=== PATIENT | female | born 1985 | race Caucasian/White ===

== ENCOUNTER 2017-09-08 16:10 | Emergency (ER) | END 2017-09-08 18:07 | disposition home or self-care (01) ==

== ENCOUNTER 2018-01-04 12:34 | Outpatient (CLI) | END 2018-01-04 17:20 | disposition home or self-care (01) ==

== ENCOUNTER 2018-03-21 05:30 | Inpatient (IN) | payer MEDICAID ==
[~2018-03-21] VITALS: Ht 162.6 cm; Wt 75.2 kg
[~2018-03-21 05:30] MED LIST: PREN-93 PO
[2018-03-21 05:49] VITALS: Ht 162.6 cm; Wt 75.2 kg
[2018-03-21] MEDS ORDERED: CARBOPROST 250 MCG INJ IM PRN ×2 (06:00→09:30)
[2018-03-21] MEDS ORDERED: OXYTOCIN 30 UNITS/LR 500 ML IV PRN ×2 (06:00→09:30)
[2018-03-21] MEDS ORDERED: OXYTOCIN 30 UNITS/LR 500 ML IV SCH ×2 (06:00→09:03)
[2018-03-21] MEDS ORDERED: METHYLERGONOVINE 0.2 MG INJ IM PRN ×2 (06:00→09:30)
[2018-03-21] MEDS ORDERED: MISOPROSTOL 200 MCG TAB PR PRN ×2 (06:00→09:30)
[2018-03-21] MEDS ORDERED: CEFAZOLIN 2 GM/50 ML (PMX) 50 ML IVPB SCH (06:00)
[2018-03-21 06:29] VITALS: BP 109/63; PULSE 75; RESP 16
[2018-03-21] MEDS: LACTATED RINGER'S 1,000 ML IV SCH ×3 (06:29→22:14)
[2018-03-21] MEDS ORDERED: OXYTOCIN 30 UNITS/LR 500 ML BAG IV ONE (07:00)
[2018-03-21] MEDS ORDERED: EPHEDrine SULFATE 50 MG/5 ML SYG ONE (07:00)
--- NOTE | 2018-03-21 08:13 | PREAC ---
Date/Time of Note Date/Time of Note DATE: 03/21/18 TIME: 08:12 Anesthesia Eval and Record Evaluation Time Pre-Procedure Interview DATE: 03/21/18 TIME: 08:12 Age 33 Sex female NPO: 8 hrs Preoperative diagnosis Planned procedure repeat c/s with BTL Past Medical History Past Medical History: None Surgery & Anesthesia Issues No known issue Meds Anticoagulation: No Beta Ceferino within 24 hr: No Reason Beta Ceferino not given: Pt. not on B-Ceferino Reported Medications Vit No.124/Iron/FA ( Vitamin Tablet) 1 Each Tablet, 1 EACH PO DAILY, TAB 01/04/18 Current Medications Lactated Ringer's 1,000 ml @ 125 mls/hr Q8H IV Last administered on 03/21/18at 06:29; Admin Dose 125 MLS/HR; Start 03/21/18 at 05:50 Cefazolin Sodium/ Dextrose 50 ml @ 100 mls/hr ONCE IVPB ; Start 03/21/18 at 06:00 Oxytocin/Lactated Ringer's 500 ml @ 125 mls/hr POST IV ; Start 03/21/18 at 06:00 Oxytocin/Lactated Ringer's 500 ml @ 0 mls/hr ONCE PRN IV VAGINAL BLEEDING; Start 03/21/18 at 06:00 Methylergonovine Maleate (Methergine) 0.2 mg ONCE PRN IM VAGINAL BLEEDING; Start 03/21/18 at 06:00 Carboprost Tromethamine (Hemabate) 250 mcg ONCE PRN IM VAGINAL BLEEDING; Start 03/21/18 at 06:00 Misoprostol (Cytotec) 1,000 mcg ONCE PRN IN VAGINAL BLEEDING; Start 03/21/18 at 06:00 Meds reviewed: Yes Allergies Coded Allergies: No Known Allergies (Verified Allergy, Mild, 06/22/15) Allergies Reviewed: Yes Labs/Studies Labs Reviewed: Reviewed by anesthesiologist Result Diagram: 03/21/18 0654 Laboratory Tests 03/21/18 06:54 Blood Bank Test 03/21/18 06:54 Antibody Screen NEGATIVE Blood Type A POSITIVE Rh Immune Globulin Candidate NO test: Positive Pre-procedure Exam Last vitals Vital Signs Date Temp Pulse Resp B/P (MAP) Pulse Ox O2 O2 Flow FiO2 Time Delivery Rate 03/21/18 98.4 75 16 109/63 Room Air 06:29 (78) Airway: Adequate mouth opening, Adequate thyromental dist Mallampati: Mallampati II Teeth: Normal Lung: Normal Heart: Normal ASA Physical Status ASA physical status: 2 Emergency: None Planned Anesthetic Neuraxial: Spinal Planned Pain Management Sub-arachniod narcotics Pre-operative Attestations Prior to commencing anesthesia and surgery, the patient was re-evaluated, there was verification of: *The patient's identity *The results of appropriate recent lab work and preoperative vital signs *The above evaluation not changing prior to induction *Anesthetic plan, risk benefits, alternative and complications discussed with patient/family; questions answered; patient/family understands, accepts and wishes to proceed. GRETA BOND Mar 21, 2018 08:13
[2018-03-21] MEDS ORDERED: NALOXONE (0.4 MG/ML) INJ IV PRN (08:30)
[2018-03-21] MEDS ORDERED: METOCLOPRAMIDE 10 MG INJ IV PRN (08:30)
[2018-03-21] MEDS ORDERED: DIPHENHYDRAMINE 50 MG INJ IV PRN (08:30)
[2018-03-21] MEDS ORDERED: FENTAnyl 50 MCG/ML VIAL IV PRN ×2 (08:30)
[2018-03-21] MEDS ORDERED: HYDROmorphONE 1 MG/5 ML IV SYRINGE IV PRN ×3 (08:30)
[2018-03-21] MEDS ORDERED: ONDANSETRON 4 MG INJ IV PRN ×2 (08:30)
[2018-03-21] MEDS ORDERED: KETOROLAC 30 MG INJ IV PRN (08:30)
[2018-03-21] MEDS ORDERED: HYDROmorphONE 0.5 MG/0.5 ML SYG IV PRN ×2 (08:30)
[2018-03-21] MEDS ORDERED: morphine SULFATE/PF (10 MG/10 ML) INJ ONE (08:46)
--- NOTE | 2018-03-21 08:54 | HP ---
Date/Time of Note Date/Time of Note DATE: 03/21/18 TIME: 08:49 OB - History Hx of Present Free Text/Dictation 33-year-old 023 (1 ectopic ) with single intrauterine at 39 weeks and 1 day with 3 previous delivery desires repeat delivery permanent surgical sterilization. She states good movement. She denies nausea, vomiting, shortness of breath, chest pain, headache, visual changes, vaginal bleeding or LOF. Chief Complaint: Scheduled for repeat delivery and bilateral tubal ligation Last Menstrual Period: Jun 21, 2017 Estimated Due Date: Mar 28, 2018 : 6 Para: 3 Spontaneous : 1 Therapeutic : 0 Care: Good Care Ultrasounds: Normal mid trimester US Obstetrical Complications: None Medical Complications: None Past Family/Social History * Past Medical, Surgical, Family and Obstetric Histories reviewed from chart. Blood Type: A+ Rubella: immune RPR/VDRL: Negative GBS Status: Negative HBsAG: Negative OB Admission Exam Vital Signs Vital Signs Vital Signs Date Temp Pulse Resp B/P (MAP) Pulse Ox O2 O2 Flow FiO2 Time Delivery Rate 03/21/18 98.4 75 16 109/63 Room Air 06:29 (78) Physical Exam HEENT: WNL Heart: Rhythm Normal Lungs: Clear Abdomen: WNL Extremities: Normal Membranes: Intact Heart Rate: 130's Accelerations: Accelerations Present Decelerations: No Decelerations Varibility: Moderate Contractions on Admission: >10 Minutes Apart Last 72 hours Lab Results CBC & BMP 03/21/18 06:54 OB Assessment/Plan Other plan: 33-year-old with 3 previous delivery desires repeat delivery and permanent surgical sterilization. - FHR: No sign of metabolic acidosis- Category I - Continuous EFM, toco - CBC, blood type and screen - Analgesia options with R/B/A discussed in detail with patient - Epidural per patient request - Please see the orders - A+/Rubella: Immune - GBS: negative The risk of delivery including but not limited to bleeding, infection, injury to other organs (bowel, bladder, ureter, vessels, nerves), injury to fetus, blood transfusion, blood transfusion related infection, risk of anesthesia, adhesion, needs for future , removal of uterus or any other indicated surgery, permanent surgical sterilization, other contraceptive options including IUD, less than 1% failure rate, increased risk of ectopic if failure happen discussed with the patient and her family. She expressed understanding. All of her questions were answered. She signed the informed consent. PHYSICIAN'S VERIFICATION OF INFORMED CONSENT The patient was counseled regarding the procedure, its indications, risks, potential complications and alternatives and any questions were answered. Consent was obtained. PLANNED PROCEDURE/TREATMENT: delivery with possible using vacuum/forceps, bilateral tubal ligation/bilateral salpingectomy and any other indicated surgery PHYSICIAN'S VERIFICATION OF INFORMED CONSENT FOR BLOOD TRANSFUSION: There is a reasonable possibility that blood transfusion will be necessary as a result of the patient's procedure. I have discussed the following with the patient/patient's legal employer relations representative: An explanation of the benefits and risks of the transfusion of blood or blood products and the possible alternatives. All questions have been answered to the patient's satisfaction. INFORMED CONSENT:The patient has been informed of: The nature of the proposed care, treatment, services, medications, interventions or procedures. Potential benefits, risks or side effects, including potential problems related to recuperation. The likelihood of achieving care treatment and service goals. Reasonable alternatives to the proposed care, treatment and service. The relevant risks, benefits and side effects related to alternatives, including the possible results of not receiving care, treatment and services. When indicated, any limitations on the confidentiality of information learned from or about the patient. If appropriate, the risks, benefits and alternatives of the drugs to be used for sedation/analgesia including moderate sedation. If appropriate, patient has been provided information on the risks, benefits and alternatives to the transfusion of blood and/or blood products. If appropriate, patient has been provided information regarding the [place] Blood Act. ANGY DOMINGO Mar 21, 2018 08:53
[2018-03-21] MEDS ORDERED: DEXTROSE 5%-LR 1,000 ML IV SCH (09:03)
[2018-03-21] MEDS ORDERED: PHENYLephrine (100 MCG/ML) 10ML SYG ONE (09:04)
[2018-03-21] MEDS ORDERED: METHYLERGONOVINE 0.2 MG TAB PO PRN (09:30)
[2018-03-21] MEDS ORDERED: LANOLIN HPA 1 PKT TOP PRN (09:30)
[2018-03-21] MEDS ORDERED: MAGNESIUM HYDROXIDE 30ML CUP PO PRN (09:30)
[2018-03-21 13:00] VITALS: BP 120/78; PULSE 57; RESP 18
[2018-03-21] MEDS: KETOROLAC 30 MG INJ IV PRN (13:26)
[2018-03-21] MEDS ORDERED: IBUPROFEN 800 MG TAB PO SCH (14:00)
--- NOTE | 2018-03-21 15:14 | OPR ---
Operative Report Planned Procedure Procedure date Mar 21, 2018 Procedure(s) Repeat low transverse delivery, bilateral tubal ligation Performed by see signature line Rubber Gasket Inspector Trimmer: DAVON WILSON MD Anesthesiologist: GRETA BOND Pre-procedure diagnosis 33-year-old (1 ectopic ) with single intrauterine at 39 weeks and 1 day with 3 previous delivery desires repeat delivery permanent surgical sterilization. [id number] Anesthesia Type: [id number] spinal Post-Procedure Post-procedure diagnosis 1. 33-year-old (1 ectopic ) at 39 weeks and 1 day with 3 previous delivery desires repeat delivery permanent surgical sterilization. 2. There was a 4 cm window on lower uterine segment Findings 1. Normal uterus, fallopian tubes and ovaries. There was a 4 cm window on lower uterine segment 2. Viable male in cephalic presentation. 9 at one minute and 9 in 5 minutes. Weight: 2895 g. Height 20 inches. Time of delivery: 09:26 3. Placenta with three vessel cord 4. Amniotic fluid - Clear Estimated Blood Loss: 500 - 600 mls Specimen(s) none Grafts/Implant(s) none Complication(s) none Pt Condition post procedure: stable Disposition: PACU Procedure Description INDICATION AND HISTORY: A 33-year-old (1 ectopic ) with single intrauterine at 39 weeks and 1 day with 3 previous delivery desires repeat delivery permanent surgical sterilization. The risk of delivery including but not limited to bleeding, infection, injury to other organs (bowel, bladder, ureter, vessels, nerves), injury to fetus, blood transfusion, blood transfusion related infection, risk of anesthesia, adhesion, needs for future , removal of uterus or any other indicated surgery, permanent surgical sterilization, other contraceptive option with risk benefits alternative including IUD, increased rate of ectopic if failure of procedure occurs discussed with the patient and her family. She expressed understanding. All of her questions were answered. She signed the informed consent. DESCRIPTION OF OPERATION: The patient was taken to the operating room, where she was identified and the procedure was verified. The patient received two gram of Ancef 30 minutes prior to surgery. Spinal anesthesia was placed. The patient placed in the dorsal supine position with a left tilt. The heart rate was 134 bpm. The patient was then prepped and draped in the normal sterile fashion. A Pfannenstiel skin incision was made and carried down to the fascia with knife. The fascia was incised in the midline and the fascial incision was carried laterally with Puente scissors. The superior portion of the fascial incision was then grasped with Suad clamps and tented up and dissected off the underlying rectus muscle with sharp dissection. The lower portion of the fascial incision was then made in a similar fashion. The rectus muscle was and the peritoneum was entered. The peritoneal incision was then stretched and an Rodrigo retractor was inserted. Then, an incision was made in the lower uterine segment in a transverse fashion with a knife and extended bluntly. The was delivered atraumatically in cephalic presentation with the above findings. The umbilical cord was clamped and cut. The neonatology resuscitation team was present and the baby was handed to them. A cord blood sample was obtained for further evaluation. The placenta and membrane, which appeared normal were Removed. The uterus was exteriorized and cleared of all clot and debris. The uterus was then closed in a two layer fashion with 0-Monocryl. At the time of closure, hemostasis was noted. Then the left fallopian tube was identified and was grasped using Bristol clamp, segment of distal fallopian tube including fimbria was double ligated with O- plain, excised and sent to pathology. Same procedure repeated at the right side. Hemostasis of stump of both fallopian tube reassured.The gutters were irrigated. The peritoneum was reapproximated with 3-0 Vicryl. The muscle was reapproximated with 3-0 Vicryl. The fascia was approximated with 0-Vicryl in a running fashion. The subcutaneous tissue was re approximated with 3-0 vicryl. The skin was closed with 4-0 Monocryl. All instruments, sponges and needle counts were correct x3. The patient tolerated the procedure well. She transferred to the recovery room in stable condition. ANGY DOMINGO Mar 21, 2018 15:13
[2018-03-21 15:58] VITALS: BP 113/73; PULSE 65; RESP 17
[2018-03-21] MEDS: GUAIFENESIN 20 MG/ML 5ML CUP PO PRN (17:01)
--- NOTE | 2018-03-21 17:51 | PAC ---
Date/Time of Note Date/Time of Note DATE: 03/21/18 TIME: 17:51 Post-Anesthesia Notes Post-Anesthesia Note Last documented vital signs Vital Signs Date Temp Pulse Resp B/P (MAP) Pulse Ox O2 O2 Flow FiO2 Time Delivery Rate 03/21/18 97.3 65 17 113/73 98 Room Air 15:58 (86) Activity: WNL Respiratory function: WNL Cardiovascular function: WNL Mental status: Baseline Pain reasonably controlled: Yes Hydration appropriate: Yes Nausea/Vomiting absent: Yes GRETA BOND Mar 21, 2018 17:51
--- NOTE | 2018-03-21 17:54 | NUR ---
EOSS: VSS. IV INFUSING WELL. F/C TO GRAVITY AND DSG CDI. GOOD BONDING SEEN WITH THE BABY. BREAST FEEDING WELL.
[2018-03-21 20:00] VITALS: BP 99/58; PULSE 83; RESP 20
[2018-03-21] MEDS: SENNA/DOCUSATE NA (8.6MG/50MG) TAB PO SCH (21:00)
[2018-03-22 03:14] VITALS: BP 105/66; PULSE 78; RESP 20
--- NOTE | 2018-03-22 03:15 | NUR ---
EOSS NO DISTRESS, LITTLEJOHN DISCONTINUED, HAD COMMUTATOR REPAIRER CARE
[2018-03-22] MEDS: LACTATED RINGER'S 1,000 ML IV SCH (05:50)
[2018-03-22 07:40] VITALS: BP 111/72; PULSE 74; RESP 17
[2018-03-22] MEDS: KETOROLAC 30 MG INJ IV PRN (07:47)
[2018-03-22] MEDS: SENNA/DOCUSATE NA (8.6MG/50MG) TAB PO SCH ×2 (09:19→20:50)
[2018-03-22] MEDS ORDERED: DIPHTH/TET/ACEL PERTUSS (ADULT) 0.5 ML VIAL IM* ONE (11:00)
--- NOTE | 2018-03-22 11:00 | NUR ---
DRESSING REMOVED BY DR ALEXANDER.
--- NOTE | 2018-03-22 12:39 | PN ---
Date/Time of Note Date/Time of Note DATE: 03/22/18 TIME: 12:37 OB Subjective Subjective Subjective Ambulating. Pain well-controlled with p.o. pain medication. Vaginal bleeding decreased. Breast-feeding. Denies any dizziness, shortness of breath or chest pain or any other complaint. OB Objective Objective Objective Const: GA, A&O, NAD Resp: [Clear to auscultation bilaterally] Cardio: [Regular rate and rhythm, no murmurs] Abd: [Soft, non tender, non distended. Normal bowel sounds] Uterus palpable and nontender at the level of umbilicus Appropriate tenderness in the incision noted Incision: Clean dry and intact on my culture 100,018 mg Skin: [No petechiae or rashes] Ext: [No cyanosis, or edema, no calf tenderness, no cords palpable, negative Homans sign Neuro: [Awake and alert] Psych: [Normal Mood and Affect] Laboratory Tests Test 03/22/18 06:04 03/22/18 06:36 Lab Scanned Report REFERENCE LAB White Blood Count 7.4 Red Blood Count 3.15 L Hemoglobin 9.9 L Hematocrit 29.2 L Mean Corpuscular Volume 92.7 Mean Corpuscular Hemoglobin 31.4 Mean Corpuscular Hemoglobin Concent 33.9 Red Cell Distribution Width 12.8 Platelet Count 199 Mean Platelet Volume 11.9 H Immature Granulocytes % 0.500 H Neutrophils % 70.4 Lymphocytes % 20.5 Monocytes % 6.9 Eosinophils % 1.3 Basophils % 0.4 Nucleated Red Blood Cells % 0.0 Immature Granulocytes # 0.040 H Neutrophils # 5.2 Lymphocytes # 1.5 Monocytes # 0.5 Eosinophils # 0.1 Basophils # 0.0 Nucleated Red Blood Cells # 0.0 OB Assessment/Plan Other Assessment: Status post repeat section with BTL Anemia, postop, asymptomatic Doing well Routine postop care Iron twice a day with stool softener PRESTON ALEXANDER MD Mar 22, 2018 12:39
[2018-03-22] MEDS: IBUPROFEN 800 MG TAB PO SCH ×2 (13:16→21:30)
[2018-03-22] MEDS: GUAIFENESIN 20 MG/ML 5ML CUP PO PRN (13:16)
[2018-03-22] MEDS: HYDROCODONE/APAP (5/325) TAB GTB SCH ×2 (13:17→21:30)
[2018-03-22] MEDS: HYDROCODONE/APAP (5/325) TAB NGT PRN (15:59)
[2018-03-22 16:13] VITALS: BP 119/65; PULSE 76; RESP 18
--- NOTE | 2018-03-22 17:51 | NUR ---
EOSS: VSS AMBULATING IN HALLS AND VOIDING. BREAST FEEDING WELL. GOOD BONDING SEEN WITH THE BABY. PASSING SMALL AMTS OF GAS AFTER WALKING.
[2018-03-22 19:57] VITALS: BP 102/59; PULSE 75; RESP 16
[2018-03-22] MEDS: POLYSACCHARIDE IRON COMPLEX CAP PO SCH (20:50)
[2018-03-22] MEDS ORDERED: DOCUSATE SODIUM 100 MG CAP PO SCH (21:00)
[2018-03-23 04:14] VITALS: BP_SYST 100; BP_SYST 84; BP_DIAS 52; BP_DIAS 58; PULSE 64; PULSE 69; RESP 18
--- NOTE | 2018-03-23 05:16 | NUR ---
EOSS: Vital signs stable. No acute distress. Fundus firm, light lochia. Ambulating well. well. present at bedside.
[2018-03-23] MEDS: IBUPROFEN 800 MG TAB PO SCH ×3 (05:43→22:04)
[2018-03-23] MEDS: HYDROCODONE/APAP (5/325) TAB GTB SCH ×3 (05:43→22:04)
[2018-03-23 08:00] VITALS: BP 100/65; PULSE 78; RESP 19
[2018-03-23] MEDS: POLYSACCHARIDE IRON COMPLEX CAP PO SCH ×2 (08:40→21:25)
[2018-03-23] MEDS: SENNA/DOCUSATE NA (8.6MG/50MG) TAB PO SCH ×2 (08:41→20:39)
[2018-03-23] MEDS: HYDROCODONE/APAP (5/325) TAB NGT PRN (10:48)
[2018-03-23 15:55] VITALS: BP 109/73; PULSE 66; RESP 16
--- NOTE | 2018-03-23 17:24 | NUR ---
EOSS: Mom and baby bonding well, no significant changes in condition noted. Needs checked and attended, mom's lower abdominal incision bruised (reddish) but no s/s of infection noted. Incision site with dermabond and no infection noted. Addendum: 03/23/18 at 1727 by TERESE MAI RN Amended: Links added.
[2018-03-23 20:00] VITALS: BP 115/69; PULSE 76; RESP 18
--- NOTE | 2018-03-23 23:40 | PN ---
Date/Time of Note Date/Time of Note DATE: 03/23/18 TIME: 23:36 OB Subjective Subjective Subjective POD#2 Patient is doing well. She denies nausea, vomiting, shortness of breath, chest pain, headache. She has been ambulating without difficulty, tolerating regular diet. Pain is well controlled on current medications OB Objective Objective Objective Vital Signs Date Temp Pulse Resp B/P (MAP) Pulse Ox O2 O2 Flow FiO2 Time Delivery Rate 03/23/18 98.7 76 18 115/69 Room Air 20:00 (84) 03/22/18 99 03:14 General: AAO X 3, comfortable, NAD, appropriate mood and affect. Heart: RRR +S1, +S2, no murmurs. Incision: Clear, dry, intact. No erythema, drainage or induration. Flank: No CVA tenderness (B/L) LE: Mild edema. No clubbing, cyanosis, thigh or calf tenderness (B/L). Homans 'sign is negative OB Assessment/Plan Other plan: 33-year-old s/p repeat delivery and bilateral tubal ligation at 39 weeks and 1 day POD#2 - AF, VSS - Baby is doing well, at bed side. She is bonding well - Continue care - Discharge home tomorrow - Rx and instruction given - Follow up in one and 6 weeks 2) anemia: Recommend increase ferrous sulfate 325 mg twice a day and continue vitamin. ANGY DOMINGO Mar 23, 2018 23:40
[2018-03-24 04:00] VITALS: BP 97/64; PULSE 58; RESP 18
[2018-03-24] MEDS: HYDROCODONE/APAP (5/325) TAB GTB SCH (05:47)
[2018-03-24] MEDS: IBUPROFEN 800 MG TAB PO SCH ×2 (05:47→13:42)
--- NOTE | 2018-03-24 06:14 | NUR ---
MOM REPORTED BM LAST NIGHT, SEEN AMBULATING IN THE HALLWAYS, NO COMPLAINTS DURING THE NIGHT, WELL
[2018-03-24 07:50] VITALS: BP 111/66; PULSE 75; RESP 20
[2018-03-24] MEDS: SENNA/DOCUSATE NA (8.6MG/50MG) TAB PO SCH (07:57)
[2018-03-24] MEDS ORDERED: MEASLES,MUMPS,RUBELLA VACCINE INJ SC* ONE (09:00)
[2018-03-24] MEDS ORDERED: DIPHTH/TET/ACEL PERTUSS (ADULT) 0.5 ML VIAL IM* ONE (09:00)
[2018-03-24] MEDS: POLYSACCHARIDE IRON COMPLEX CAP PO SCH (09:37)
--- NOTE | 2018-03-24 10:06 | CONS ---
Date/Time of Note Date/Time of Note DATE: 03/24/18 TIME: 10:05 Assessment/Plan Assessment/Plan Result Diagram: 03/22/18 0636 Consultation Date/Type/Reason Admit Date/Time Mar 21, 2018 at 05:30 Initial Consult Date Type of Consult Anesthesiology Reason for Consultation Follow up 24 HR Interval Summary Free Text/Dictation Pt seen and examined art bedside on 03/22/18 POD#1 s/p repeat c/s with BTL. Pt received Duramorph for post op pain control. No N/V/MCKINNEY/Numbness in extremities. Exam/Review of Systems Vital Signs Vitals Vital Signs Date Temp Pulse Resp B/P (MAP) Pulse Ox O2 O2 Flow FiO2 Time Delivery Rate 03/24/18 98.2 75 20 111/66 Room Air 07:50 (81) 03/22/18 99 03:14 Medications Medications Current Medications Methylergonovine Maleate (Methergine) 0.2 mg Q6H PRN PO VAGINAL BLEEDING; Start 03/21/18 at 09:30 Simethicone (Mylicon) 160 mg Q8H PRN PO DISTENSION/GAS/BLOATING Last administered on 03/22/18at 15:46; Admin Dose 160 MG; Start 03/21/18 at 09:30 Senna/Docusate Sodium (Senokot-S) 1 tab BID PO Last administered on 03/23/18at 20:39; Admin Dose 1 TAB; Start 03/21/18 at 21:00 Lanolin (Lanolin Hpa) 1 applic BEDSIDE MEDICATION PRN TOP BEDSIDE FOR ESME TO NIPPLES; Start 03/21/18 at 09:30 Oxytocin/Lactated Ringer's 500 ml @ 0 mls/hr ONCE PRN IV VAGINAL BLEEDING; Start 03/21/18 at 09:30 Methylergonovine Maleate (Methergine) 0.2 mg ONCE PRN IM VAGINAL BLEEDING; Start 03/21/18 at 09:30 Carboprost Tromethamine (Hemabate) 250 mcg ONCE PRN IM VAGINAL BLEEDING; Start 03/21/18 at 09:30 Misoprostol (Cytotec) 1,000 mcg ONCE PRN [place] VAGINAL BLEEDING; Start 03/21/18 at 09:30 Acetaminophen/ Hydrocodone Bitart ([place] (5/325)) 1 tab Q4H PRN NGT PAIN LEVEL 7-10 Last administered on 03/23/18 10:48; Admin Dose 1 TAB; Start 03/22/18 at 11:00 Acetaminophen/ Hydrocodone Bitart ([place] (5/325)) 1 tab Q8 GTB Last adminis tered on 03/24/18 05:47; Admin Dose 1 TAB; Start 03/22/18 at 14:00 Magnesium Hydroxide (Milk Of Mag) 30 ml DAILY PRN PO CONSTIPATION Last administered on 03/23/18 21:25; Admin Dose 30 ML; Start 03/21/18 at 09:30 Ibuprofen (Motrin) 800 mg Q8 PO Last administered on 03/24/18 05:47; Admin Dose 800 MG; Start 03/22/18 at 14:00 Guaifenesin (Robitussin Liquid Cup) 100 mg Q6H PRN PO COUGH Last administered on 03/22/18 13:16; Admin Dose 100 MG; Start 03/21/18 at 12:00 Polysaccharide Iron Complex (Niferex-150) 1 cap BID PO Last administered on 03/24/18 09:37; Admin Dose 1 CAP; Start 03/22/18 at 21:00 GRETA BOND Mar 24, 2018 10:06
--- NOTE | 2018-03-24 10:07 | DS ---
Date/Time of Note Date/Time of Note DATE: 03/24/18 TIME: 10:07 Obstetrical Discharge Record Final Diagnosis Final Diagnosis: Term delivered Other Final Diagnosis 33-year-old s/p repeat delivery and bilateral tubal ligation at 39 weeks and 1 day POD#3. She is ambulating and tolerating regular diet. She is voiding without difficulty. Pain is well controlled on current medication - AF, VSS - Baby is doing well, at bed side. She is bonding well - Continue care - Discharge home - Rx and instruction given - Follow up in one and 6 weeks 2) anemia: Recommend increase ferrous sulfate 325 mg twice a day and continue vitamin. Section Section: Repeat Condition on Discharge Physical Assessment Last Vitals: Vital Signs Date Temp Pulse Resp B/P (MAP) Pulse Ox O2 O2 Flow FiO2 Time Delivery Rate 03/24/18 98.2 75 20 111/66 Room Air 07:50 (81) 03/22/18 99 03:14 Voiding: Yes Bowel Movement: Yes Breast: Soft, non-tender Fundus: Firm Calf Tenderness: No Patient Condition: Stable ANGY DOMINGO Mar 24, 2018 10:07
--- NOTE | 2018-03-24 13:43 | NUR ---
DISCHARGED IN STABLE CONDITION WITH BABY.
== END 2018-03-24 13:50 | disposition home or self-care (01) | DRG 785 ==
LOC: L-D 05:30 → PP1 13:01
PROVIDERS: ADMIT Obstetrics & Gynecology; ATTEND Obstetrics & Gynecology
PROC: 0UB70ZZ Excision of Bilateral Fallopian Tubes, Open Approach (ICD-10-PCS; 2018-03-21)
PROC: 10D00Z1 Extraction of Products of Conception, Low, Open Approach (ICD-10-PCS; principal; 2018-03-21 07:30)
DX: O34.211 Maternal care for low transverse scar from previous cesarean delivery (principal); Z3A.39 39 weeks gestation of pregnancy; Z30.2 Encounter for sterilization; O90.81 Anemia of the puerperium; D64.9 Anemia, unspecified
CPT/HCPCS: 85025; 85610; 85730; 86592; 86850; 86900; 86901; 87340; 88302; 99464; J0690; J1885; J2274; J2370; J2405; J2590; J7120; J7121